=== PATIENT | male | born 1940 | race Caucasian/White ===

== ENCOUNTER 2023-05-04 12:30 | Inpatient (IN) | payer MEDICARE, OTHER ==
[2023-05-04 16:21] VITALS: BMI 31.8
[2023-05-04] MEDS ORDERED: Piperacillin/Tazobactam 3.375 GM VIAL IVPB SCH (20:00)
[2023-05-04] MEDS: Piperacillin/Tazobactam 3.375 GM in Sodium Chloride 0.9% 100 ML IVPB SCH (21:25)
[2023-05-04] MEDS: Donepezil HCl 10 MG TAB PO SCH (21:26)
[2023-05-04] MEDS: Atorvastatin Calcium 10 MG TAB PO SCH (21:26)
[2023-05-04] MEDS: Dorzolamide HCl 2% Ophth Soln 10 ml Bottle EA EYE SCH (21:27)
[2023-05-04] MEDS: Timolol 0.5% Ophth Soln 5 ml Bottle EA EYE SCH (22:23)
[2023-05-05] MEDS: Piperacillin/Tazobactam 3.375 GM in Sodium Chloride 0.9% 100 ML IVPB SCH ×3 (03:21→21:28)
[2023-05-05] MEDS: Levothyroxine Sodium 50 MCG TAB PO SCH (05:21)
[2023-05-05 05:26] LABS: #Eosinphils 0.4 thou/uL (0.0-0.7); #Lymphocytes 1.3 thou/uL (1.20-3.40); #Monocytes 0.7 thou/uL (0.11-0.59); #Neutrophils 6.5 thou/uL (1.40-6.50); %Basophils 0.5 % (0.0-1.0); %Eosinophils 4.6 % (0.0-10.0); %Lymphocytes 14.7 % (21.0-51.0); %Monocytes 8.3 % (0.0-10.0); %Neutrophils 71.9 % (42.0-75.0); Hematocrit 37.3 % (42.0-52.0); Hemoglobin 12.3 g/dL (14.0-18.0); Mean Corpuscular HGB CONC 32.9 g/dL (32.0-36.0); Mean Corpuscular Hemoglobin 29.4 pg (27.0-31.0); Mean Corpuscular Volume 89.4 fl (78.0-98.0); Mean Platelet Volume 8.1 fL (7.4-10.4); Platelet Count 144 10x3/uL (130-400); RBC Distribution Width 12.4 % (11.5-14.5); Red Blood Cell (RBC) Count 4.18 mill/uL (4.70-6.10)
[2023-05-05 05:40] LABS: Anion Gap 12 mmol/L (10-20); BUN (Urea Nitrogen) 12 mg/dL (8.4-25.7); Calc. Creatinine Clearance 81 mL/min (70-130); Calcium 8.4 mg/dL (7.8-10.44); Carbon Dioxide 21 mmol/L (23-31); Chloride 108 mmol/L (98-107); Estimated GFR 78; Glucose 90 mg/dL (83-110); Potassium 3.6 mmol/L (3.5-5.1); Sodium 137 mmol/L (136-145)
[2023-05-05] MEDS: Sertraline 100 MG TAB PO SCH (08:59)
[2023-05-05] MEDS: Dorzolamide HCl 2% Ophth Soln 10 ml Bottle EA EYE SCH ×2 (09:03→21:28)
[2023-05-05] MEDS: Cholecalciferol (Vitamin D3) 5,000 UNITS CAPSULE PO SCH (09:04)
[2023-05-05] MEDS: Timolol 0.5% Ophth Soln 5 ml Bottle EA EYE SCH ×2 (09:04→21:31)
[2023-05-05] MEDS: Tamsulosin HCl 0.4 MG CAP PO SCH (09:04)
[2023-05-05] MEDS: Aspirin 81 mg Enteric Coated Tablet PO SCH (09:05)
[2023-05-05] MEDS: Atorvastatin Calcium 10 MG TAB PO SCH (21:27)
[2023-05-05] MEDS: Donepezil HCl 10 MG TAB PO SCH (21:28)
[2023-05-06] MEDS: Piperacillin/Tazobactam 3.375 GM in Sodium Chloride 0.9% 100 ML IVPB SCH ×3 (04:31→20:12)
[2023-05-06] MEDS: Levothyroxine Sodium 50 MCG TAB PO SCH (05:30)
[2023-05-06] MEDS: Timolol 0.5% Ophth Soln 5 ml Bottle EA EYE SCH ×2 (09:40→20:11)
[2023-05-06] MEDS: Dorzolamide HCl 2% Ophth Soln 10 ml Bottle EA EYE SCH ×2 (09:41→20:13)
[2023-05-06] MEDS: Tamsulosin HCl 0.4 MG CAP PO SCH (09:42)
[2023-05-06] MEDS: Cholecalciferol (Vitamin D3) 5,000 UNITS CAPSULE PO SCH (09:42)
[2023-05-06] MEDS: Aspirin 81 mg Enteric Coated Tablet PO SCH (09:43)
[2023-05-06] MEDS: Sertraline 100 MG TAB PO SCH (09:43)
[2023-05-06] MEDS: Polyethylene Glycol 3350 17 GM Packet PO SCH (09:43)
[2023-05-06] MEDS: Atorvastatin Calcium 10 MG TAB PO SCH (20:12)
[2023-05-06] MEDS: Donepezil HCl 10 MG TAB PO SCH (20:12)
[2023-05-07] MEDS: Piperacillin/Tazobactam 3.375 GM in Sodium Chloride 0.9% 100 ML IVPB SCH ×3 (04:50→20:19)
[2023-05-07] MEDS: Levothyroxine Sodium 50 MCG TAB PO SCH (05:04)
[2023-05-07] MEDS: Dorzolamide HCl 2% Ophth Soln 10 ml Bottle EA EYE SCH ×2 (08:19→20:18)
[2023-05-07] MEDS: Tamsulosin HCl 0.4 MG CAP PO SCH (08:19)
[2023-05-07] MEDS: Polyethylene Glycol 3350 17 GM Packet PO SCH (08:19)
[2023-05-07] MEDS: Sertraline 100 MG TAB PO SCH (08:19)
[2023-05-07] MEDS: Aspirin 81 mg Enteric Coated Tablet PO SCH (08:19)
[2023-05-07] MEDS: Cholecalciferol (Vitamin D3) 5,000 UNITS CAPSULE PO SCH (08:19)
[2023-05-07] MEDS: Timolol 0.5% Ophth Soln 5 ml Bottle EA EYE SCH ×2 (08:20→20:20)
[2023-05-07] MEDS: Atorvastatin Calcium 10 MG TAB PO SCH (20:19)
[2023-05-07] MEDS: Donepezil HCl 10 MG TAB PO SCH (20:35)
[2023-05-08] MEDS: Piperacillin/Tazobactam 3.375 GM in Sodium Chloride 0.9% 100 ML IVPB SCH ×3 (04:04→20:33)
[2023-05-08] MEDS: Levothyroxine Sodium 50 MCG TAB PO SCH (05:07)
[2023-05-08] MEDS: Dorzolamide HCl 2% Ophth Soln 10 ml Bottle EA EYE SCH ×2 (08:25→20:34)
[2023-05-08] MEDS: Sertraline 100 MG TAB PO SCH (08:27)
[2023-05-08] MEDS: Tamsulosin HCl 0.4 MG CAP PO SCH (08:27)
[2023-05-08] MEDS: Polyethylene Glycol 3350 17 GM Packet PO SCH (08:27)
[2023-05-08] MEDS: Aspirin 81 mg Enteric Coated Tablet PO SCH (08:27)
[2023-05-08] MEDS: Losartan 25 MG TAB PO SCH (08:27)
[2023-05-08] MEDS: Cholecalciferol (Vitamin D3) 5,000 UNITS CAPSULE PO SCH (08:27)
[2023-05-08] MEDS: Timolol 0.5% Ophth Soln 5 ml Bottle EA EYE SCH ×2 (08:27→20:33)
[2023-05-08] MEDS: Donepezil HCl 10 MG TAB PO SCH (20:33)
[2023-05-08] MEDS: Atorvastatin Calcium 10 MG TAB PO SCH (20:33)
[2023-05-09] MEDS: Piperacillin/Tazobactam 3.375 GM in Sodium Chloride 0.9% 100 ML IVPB SCH ×3 (04:10→20:29)
[2023-05-09] MEDS: Levothyroxine Sodium 50 MCG TAB PO SCH (05:27)
[2023-05-09] MEDS: Timolol 0.5% Ophth Soln 5 ml Bottle EA EYE SCH ×2 (08:33→20:37)
[2023-05-09] MEDS: Aspirin 81 mg Enteric Coated Tablet PO SCH (08:34)
[2023-05-09] MEDS: Polyethylene Glycol 3350 17 GM Packet PO SCH (08:34)
[2023-05-09] MEDS: Sertraline 100 MG TAB PO SCH (08:34)
[2023-05-09] MEDS: Losartan 25 MG TAB PO SCH (08:34)
[2023-05-09] MEDS: Tamsulosin HCl 0.4 MG CAP PO SCH (08:34)
[2023-05-09] MEDS: Cholecalciferol (Vitamin D3) 5,000 UNITS CAPSULE PO SCH (08:34)
[2023-05-09] MEDS: Dorzolamide HCl 2% Ophth Soln 10 ml Bottle EA EYE SCH ×2 (08:38→20:27)
[2023-05-09] MEDS: Donepezil HCl 10 MG TAB PO SCH (20:28)
[2023-05-09] MEDS: Atorvastatin Calcium 10 MG TAB PO SCH (20:28)
[2023-05-10] MEDS: Piperacillin/Tazobactam 3.375 GM in Sodium Chloride 0.9% 100 ML IVPB SCH ×3 (04:00→20:18)
[2023-05-10] MEDS: Levothyroxine Sodium 50 MCG TAB PO SCH (04:00)
[2023-05-10] MEDS: Cholecalciferol (Vitamin D3) 5,000 UNITS CAPSULE PO SCH (08:29)
[2023-05-10] MEDS: Polyethylene Glycol 3350 17 GM Packet PO SCH (08:29)
[2023-05-10] MEDS: Sertraline 100 MG TAB PO SCH (08:30)
[2023-05-10] MEDS: Aspirin 81 mg Enteric Coated Tablet PO SCH (08:30)
[2023-05-10] MEDS: Timolol 0.5% Ophth Soln 5 ml Bottle EA EYE SCH ×2 (08:30→20:17)
[2023-05-10] MEDS: Dorzolamide HCl 2% Ophth Soln 10 ml Bottle EA EYE SCH ×2 (08:30→20:24)
[2023-05-10] MEDS: Tamsulosin HCl 0.4 MG CAP PO SCH (08:30)
[2023-05-10] MEDS: Losartan 25 MG TAB PO SCH (08:30)
[2023-05-10] MEDS: Atorvastatin Calcium 10 MG TAB PO SCH (20:21)
[2023-05-10] MEDS: Donepezil HCl 10 MG TAB PO SCH (20:21)
[2023-05-11] MEDS: Piperacillin/Tazobactam 3.375 GM in Sodium Chloride 0.9% 100 ML IVPB SCH ×3 (04:03→20:28)
[2023-05-11] MEDS: Levothyroxine Sodium 50 MCG TAB PO SCH (04:03)
[2023-05-11] MEDS: Tamsulosin HCl 0.4 MG CAP PO SCH (09:18)
[2023-05-11] MEDS: Losartan 25 MG TAB PO SCH (09:18)
[2023-05-11] MEDS: Timolol 0.5% Ophth Soln 5 ml Bottle EA EYE SCH ×2 (09:19→20:29)
[2023-05-11] MEDS: Sertraline 100 MG TAB PO SCH (09:19)
[2023-05-11] MEDS: Polyethylene Glycol 3350 17 GM Packet PO SCH (09:19)
[2023-05-11] MEDS: Aspirin 81 mg Enteric Coated Tablet PO SCH (09:19)
[2023-05-11] MEDS: Cholecalciferol (Vitamin D3) 5,000 UNITS CAPSULE PO SCH (09:19)
[2023-05-11] MEDS: Dorzolamide HCl 2% Ophth Soln 10 ml Bottle EA EYE SCH ×2 (09:20→20:29)
[2023-05-11] MEDS: Donepezil HCl 10 MG TAB PO SCH (20:28)
[2023-05-11] MEDS: Atorvastatin Calcium 10 MG TAB PO SCH (20:30)
[2023-05-12] MEDS: Piperacillin/Tazobactam 3.375 GM in Sodium Chloride 0.9% 100 ML IVPB SCH ×3 (04:04→19:26)
[2023-05-12] MEDS: Levothyroxine Sodium 50 MCG TAB PO SCH (06:10)
[2023-05-12] MEDS: Losartan Potassium 50 MG TAB PO SCH (08:59)
[2023-05-12] MEDS: Tamsulosin HCl 0.4 MG CAP PO SCH (09:00)
[2023-05-12] MEDS: Sertraline 100 MG TAB PO SCH (09:00)
[2023-05-12] MEDS: Aspirin 81 mg Enteric Coated Tablet PO SCH (09:00)
[2023-05-12] MEDS: Cholecalciferol (Vitamin D3) 5,000 UNITS CAPSULE PO SCH (09:00)
[2023-05-12] MEDS: Timolol 0.5% Ophth Soln 5 ml Bottle EA EYE SCH ×2 (09:01→21:39)
[2023-05-12] MEDS: Dorzolamide HCl 2% Ophth Soln 10 ml Bottle EA EYE SCH ×2 (09:06→21:40)
[2023-05-12] MEDS: Polyethylene Glycol 3350 17 GM Packet PO SCH (09:10)
[2023-05-12] MEDS ORDERED: Ketamine 50 MG/ML (10ML VIAL) ONE (18:07)
[2023-05-12] MEDS: Atorvastatin Calcium 10 MG TAB PO SCH (21:39)
[2023-05-12] MEDS: Donepezil HCl 10 MG TAB PO SCH (21:39)
[2023-05-13] MEDS: Levothyroxine Sodium 50 MCG TAB PO SCH (05:07)
[2023-05-13] MEDS: Cholecalciferol (Vitamin D3) 5,000 UNITS CAPSULE PO SCH (08:21)
[2023-05-13] MEDS: Losartan Potassium 50 MG TAB PO SCH (08:21)
[2023-05-13] MEDS: Dorzolamide HCl 2% Ophth Soln 10 ml Bottle EA EYE SCH ×2 (08:22→21:09)
[2023-05-13] MEDS: Tamsulosin HCl 0.4 MG CAP PO SCH (08:22)
[2023-05-13] MEDS: Aspirin 81 mg Enteric Coated Tablet PO SCH (08:22)
[2023-05-13] MEDS: Sertraline 100 MG TAB PO SCH (08:22)
[2023-05-13] MEDS: Timolol 0.5% Ophth Soln 5 ml Bottle EA EYE SCH ×2 (08:22→21:09)
[2023-05-13] MEDS: Polyethylene Glycol 3350 17 GM Packet PO SCH (10:12)
[2023-05-13] MEDS: Atorvastatin Calcium 10 MG TAB PO SCH (21:09)
[2023-05-13] MEDS: Donepezil HCl 10 MG TAB PO SCH (21:09)
[2023-05-14] MEDS: Levothyroxine Sodium 50 MCG TAB PO SCH (05:17)
[2023-05-14] MEDS: Sertraline 100 MG TAB PO SCH (08:38)
[2023-05-14] MEDS: Polyethylene Glycol 3350 17 GM Packet PO SCH (08:38)
[2023-05-14] MEDS: Aspirin 81 mg Enteric Coated Tablet PO SCH (08:38)
[2023-05-14] MEDS: Losartan Potassium 50 MG TAB PO SCH (08:38)
[2023-05-14] MEDS: Cholecalciferol (Vitamin D3) 5,000 UNITS CAPSULE PO SCH (08:38)
[2023-05-14] MEDS: Tamsulosin HCl 0.4 MG CAP PO SCH (08:38)
[2023-05-14] MEDS: Dorzolamide HCl 2% Ophth Soln 10 ml Bottle EA EYE SCH ×2 (08:39→20:42)
[2023-05-14] MEDS: Timolol 0.5% Ophth Soln 5 ml Bottle EA EYE SCH ×2 (08:39→20:31)
[2023-05-14] MEDS: Atorvastatin Calcium 10 MG TAB PO SCH (20:35)
[2023-05-14] MEDS: Donepezil HCl 10 MG TAB PO SCH (20:35)
[2023-05-15] MEDS: Levothyroxine Sodium 50 MCG TAB PO SCH (05:31)
[2023-05-15] MEDS: Cholecalciferol (Vitamin D3) 5,000 UNITS CAPSULE PO SCH (09:07)
[2023-05-15] MEDS: Aspirin 81 mg Enteric Coated Tablet PO SCH (09:07)
[2023-05-15] MEDS: Losartan Potassium 50 MG TAB PO SCH (09:07)
[2023-05-15] MEDS: Sertraline 100 MG TAB PO SCH (09:07)
[2023-05-15] MEDS: Tamsulosin HCl 0.4 MG CAP PO SCH (09:08)
[2023-05-15] MEDS: Polyethylene Glycol 3350 17 GM Packet PO SCH (09:16)
[2023-05-15] MEDS: Dorzolamide HCl 2% Ophth Soln 10 ml Bottle EA EYE SCH ×2 (09:16→20:24)
[2023-05-15] MEDS: Timolol 0.5% Ophth Soln 5 ml Bottle EA EYE SCH ×2 (09:17→20:17)
[2023-05-15] MEDS: Atorvastatin Calcium 10 MG TAB PO SCH (20:18)
[2023-05-15] MEDS: Donepezil HCl 10 MG TAB PO SCH (20:18)
[2023-05-16] MEDS: Levothyroxine Sodium 50 MCG TAB PO SCH (05:57)
[2023-05-16] MEDS: Aspirin 81 mg Enteric Coated Tablet PO SCH (09:00)
[2023-05-16] MEDS: Tamsulosin HCl 0.4 MG CAP PO SCH (09:00)
[2023-05-16] MEDS: Sertraline 100 MG TAB PO SCH (09:01)
[2023-05-16] MEDS: Losartan Potassium 50 MG TAB PO SCH (09:01)
[2023-05-16] MEDS: Cholecalciferol (Vitamin D3) 5,000 UNITS CAPSULE PO SCH (09:01)
[2023-05-16] MEDS: Dorzolamide HCl 2% Ophth Soln 10 ml Bottle EA EYE SCH ×2 (09:04→21:01)
[2023-05-16] MEDS: Polyethylene Glycol 3350 17 GM Packet PO SCH (09:05)
[2023-05-16] MEDS: Timolol 0.5% Ophth Soln 5 ml Bottle EA EYE SCH ×2 (09:05→20:54)
[2023-05-16] MEDS: Donepezil HCl 10 MG TAB PO SCH (20:56)
[2023-05-16] MEDS: Atorvastatin Calcium 10 MG TAB PO SCH (20:56)
[2023-05-17] MEDS: Levothyroxine Sodium 50 MCG TAB PO SCH (06:13)
[2023-05-17] MEDS: Polyethylene Glycol 3350 17 GM Packet PO SCH (08:53)
[2023-05-17] MEDS: Losartan Potassium 50 MG TAB PO SCH (08:54)
[2023-05-17] MEDS: Aspirin 81 mg Enteric Coated Tablet PO SCH (08:54)
[2023-05-17] MEDS: Tamsulosin HCl 0.4 MG CAP PO SCH (08:54)
[2023-05-17] MEDS: Cholecalciferol (Vitamin D3) 5,000 UNITS CAPSULE PO SCH (08:54)
[2023-05-17] MEDS: Sertraline 100 MG TAB PO SCH (08:54)
[2023-05-17] MEDS: Timolol 0.5% Ophth Soln 5 ml Bottle EA EYE SCH ×2 (08:58→20:15)
[2023-05-17] MEDS: Dorzolamide HCl 2% Ophth Soln 10 ml Bottle EA EYE SCH ×2 (08:58→20:15)
[2023-05-17] MEDS: Atorvastatin Calcium 10 MG TAB PO SCH (20:15)
[2023-05-17] MEDS: Donepezil HCl 10 MG TAB PO SCH (20:15)
[2023-05-18] MEDS: Levothyroxine Sodium 50 MCG TAB PO SCH (05:56)
[2023-05-18] MEDS: Timolol 0.5% Ophth Soln 5 ml Bottle EA EYE SCH ×2 (08:29→20:21)
[2023-05-18] MEDS: Losartan Potassium 50 MG TAB PO SCH (08:30)
[2023-05-18] MEDS: Dorzolamide HCl 2% Ophth Soln 10 ml Bottle EA EYE SCH ×2 (08:30→20:22)
[2023-05-18] MEDS: Sertraline 100 MG TAB PO SCH (08:37)
[2023-05-18] MEDS: Polyethylene Glycol 3350 17 GM Packet PO SCH (08:37)
[2023-05-18] MEDS: Aspirin 81 mg Enteric Coated Tablet PO SCH (08:37)
[2023-05-18] MEDS: Cholecalciferol (Vitamin D3) 5,000 UNITS CAPSULE PO SCH (08:37)
[2023-05-18] MEDS: Tamsulosin HCl 0.4 MG CAP PO SCH (08:37)
[2023-05-18] MEDS: Donepezil HCl 10 MG TAB PO SCH (20:21)
[2023-05-18] MEDS: Atorvastatin Calcium 10 MG TAB PO SCH (20:21)
[2023-05-19] MEDS: Levothyroxine Sodium 50 MCG TAB PO SCH (05:02)
[2023-05-19] MEDS: Dorzolamide HCl 2% Ophth Soln 10 ml Bottle EA EYE SCH ×2 (08:35→21:00)
[2023-05-19] MEDS: Timolol 0.5% Ophth Soln 5 ml Bottle EA EYE SCH ×2 (08:35→21:00)
[2023-05-19] MEDS: Losartan Potassium 50 MG TAB PO SCH (08:37)
[2023-05-19] MEDS: Cholecalciferol (Vitamin D3) 5,000 UNITS CAPSULE PO SCH (08:37)
[2023-05-19] MEDS: Tamsulosin HCl 0.4 MG CAP PO SCH (08:38)
[2023-05-19] MEDS: Aspirin 81 mg Enteric Coated Tablet PO SCH (08:38)
[2023-05-19] MEDS: Sertraline 100 MG TAB PO SCH (08:47)
[2023-05-19] MEDS: Polyethylene Glycol 3350 17 GM Packet PO SCH (10:09)
[2023-05-19] MEDS: Donepezil HCl 10 MG TAB PO SCH (20:59)
[2023-05-19] MEDS: Atorvastatin Calcium 10 MG TAB PO SCH (20:59)
[2023-05-20] MEDS: Levothyroxine Sodium 50 MCG TAB PO SCH (05:40)
[2023-05-20] MEDS: Dorzolamide HCl 2% Ophth Soln 10 ml Bottle EA EYE SCH ×2 (09:15→20:44)
[2023-05-20] MEDS: Timolol 0.5% Ophth Soln 5 ml Bottle EA EYE SCH ×2 (09:15→20:50)
[2023-05-20] MEDS: Losartan Potassium 50 MG TAB PO SCH (09:16)
[2023-05-20] MEDS: Cholecalciferol (Vitamin D3) 5,000 UNITS CAPSULE PO SCH (09:16)
[2023-05-20] MEDS: Tamsulosin HCl 0.4 MG CAP PO SCH (09:16)
[2023-05-20] MEDS: Aspirin 81 mg Enteric Coated Tablet PO SCH (09:16)
[2023-05-20] MEDS: Sertraline 100 MG TAB PO SCH (09:16)
[2023-05-20] MEDS: Polyethylene Glycol 3350 17 GM Packet PO SCH (09:17)
[2023-05-20] MEDS: Atorvastatin Calcium 10 MG TAB PO SCH (20:44)
[2023-05-20] MEDS: Donepezil HCl 10 MG TAB PO SCH (20:44)
[2023-05-21] MEDS: Levothyroxine Sodium 50 MCG TAB PO SCH (05:06)
[2023-05-21] MEDS: Tamsulosin HCl 0.4 MG CAP PO SCH (09:05)
[2023-05-21] MEDS: Polyethylene Glycol 3350 17 GM Packet PO SCH (09:05)
[2023-05-21] MEDS: Aspirin 81 mg Enteric Coated Tablet PO SCH (09:05)
[2023-05-21] MEDS: Sertraline 100 MG TAB PO SCH (09:05)
[2023-05-21] MEDS: Losartan Potassium 50 MG TAB PO SCH (09:05)
[2023-05-21] MEDS: Dorzolamide HCl 2% Ophth Soln 10 ml Bottle EA EYE SCH ×2 (09:06→20:33)
[2023-05-21] MEDS: Cholecalciferol (Vitamin D3) 5,000 UNITS CAPSULE PO SCH (09:06)
[2023-05-21] MEDS: Timolol 0.5% Ophth Soln 5 ml Bottle EA EYE SCH ×2 (09:07→20:20)
[2023-05-21] MEDS: Atorvastatin Calcium 10 MG TAB PO SCH (20:20)
[2023-05-21] MEDS: Donepezil HCl 10 MG TAB PO SCH (20:20)
[2023-05-22] MEDS: Levothyroxine Sodium 50 MCG TAB PO SCH (05:14)
[2023-05-22] MEDS: Sertraline 100 MG TAB PO SCH (09:54)
[2023-05-22] MEDS: Losartan Potassium 50 MG TAB PO SCH (09:54)
[2023-05-22] MEDS: Cholecalciferol (Vitamin D3) 5,000 UNITS CAPSULE PO SCH (09:54)
[2023-05-22] MEDS: Aspirin 81 mg Enteric Coated Tablet PO SCH (09:54)
[2023-05-22] MEDS: Tamsulosin HCl 0.4 MG CAP PO SCH (09:54)
[2023-05-22] MEDS: Dorzolamide HCl 2% Ophth Soln 10 ml Bottle EA EYE SCH ×2 (09:55→20:20)
[2023-05-22] MEDS: Timolol 0.5% Ophth Soln 5 ml Bottle EA EYE SCH ×2 (09:55→20:31)
[2023-05-22] MEDS: Polyethylene Glycol 3350 17 GM Packet PO SCH (09:56)
[2023-05-22] MEDS: Atorvastatin Calcium 10 MG TAB PO SCH (20:18)
[2023-05-22] MEDS: Donepezil HCl 10 MG TAB PO SCH (20:18)
[2023-05-23] MEDS: Levothyroxine Sodium 50 MCG TAB PO SCH (05:31)
[2023-05-23] MEDS: Dorzolamide HCl 2% Ophth Soln 10 ml Bottle EA EYE SCH ×2 (09:49→20:25)
[2023-05-23] MEDS: Timolol 0.5% Ophth Soln 5 ml Bottle EA EYE SCH ×2 (09:49→20:25)
[2023-05-23] MEDS: Cholecalciferol (Vitamin D3) 5,000 UNITS CAPSULE PO SCH (09:50)
[2023-05-23] MEDS: Losartan Potassium 50 MG TAB PO SCH (09:50)
[2023-05-23] MEDS: Polyethylene Glycol 3350 17 GM Packet PO SCH (09:50)
[2023-05-23] MEDS: Sertraline 100 MG TAB PO SCH (09:50)
[2023-05-23] MEDS: Tamsulosin HCl 0.4 MG CAP PO SCH (09:50)
[2023-05-23] MEDS: Aspirin 81 mg Enteric Coated Tablet PO SCH (09:50)
[2023-05-23] MEDS: Atorvastatin Calcium 10 MG TAB PO SCH (20:24)
[2023-05-23] MEDS: Donepezil HCl 10 MG TAB PO SCH (20:24)
[2023-05-24] MEDS: Levothyroxine Sodium 50 MCG TAB PO SCH (05:42)
[2023-05-24] MEDS: Aspirin 81 mg Enteric Coated Tablet PO SCH (08:56)
[2023-05-24] MEDS: Tamsulosin HCl 0.4 MG CAP PO SCH (08:56)
[2023-05-24] MEDS: Cholecalciferol (Vitamin D3) 5,000 UNITS CAPSULE PO SCH (08:56)
[2023-05-24] MEDS: Sertraline 100 MG TAB PO SCH (08:56)
[2023-05-24] MEDS: Losartan Potassium 50 MG TAB PO SCH (08:56)
[2023-05-24] MEDS: Polyethylene Glycol 3350 17 GM Packet PO SCH (08:57)
[2023-05-24] MEDS: Timolol 0.5% Ophth Soln 5 ml Bottle EA EYE SCH ×2 (08:58→21:12)
[2023-05-24] MEDS: Dorzolamide HCl 2% Ophth Soln 10 ml Bottle EA EYE SCH ×2 (08:58→21:12)
[2023-05-24] MEDS: Donepezil HCl 10 MG TAB PO SCH (21:12)
[2023-05-24] MEDS: Atorvastatin Calcium 10 MG TAB PO SCH (21:12)
[2023-05-25] MEDS: Levothyroxine Sodium 50 MCG TAB PO SCH (05:14)
[2023-05-25] MEDS: Losartan Potassium 50 MG TAB PO SCH (08:37)
[2023-05-25] MEDS: Tamsulosin HCl 0.4 MG CAP PO SCH (08:37)
[2023-05-25] MEDS: Dorzolamide HCl 2% Ophth Soln 10 ml Bottle EA EYE SCH ×2 (08:37→20:52)
[2023-05-25] MEDS: Cholecalciferol (Vitamin D3) 5,000 UNITS CAPSULE PO SCH (08:38)
[2023-05-25] MEDS: Sertraline 100 MG TAB PO SCH (08:38)
[2023-05-25] MEDS: Aspirin 81 mg Enteric Coated Tablet PO SCH (08:38)
[2023-05-25] MEDS: Polyethylene Glycol 3350 17 GM Packet PO SCH (08:38)
[2023-05-25] MEDS: Timolol 0.5% Ophth Soln 5 ml Bottle EA EYE SCH ×2 (08:39→20:57)
[2023-05-25] MEDS: Atorvastatin Calcium 10 MG TAB PO SCH (20:52)
[2023-05-25] MEDS: Donepezil HCl 10 MG TAB PO SCH (20:53)
[2023-05-26] MEDS: Levothyroxine Sodium 50 MCG TAB PO SCH (06:22)
[2023-05-26] MEDS: Timolol 0.5% Ophth Soln 5 ml Bottle EA EYE SCH ×2 (09:28→21:12)
[2023-05-26] MEDS: Cholecalciferol (Vitamin D3) 5,000 UNITS CAPSULE PO SCH (09:31)
[2023-05-26] MEDS: Losartan Potassium 50 MG TAB PO SCH (09:31)
[2023-05-26] MEDS: Tamsulosin HCl 0.4 MG CAP PO SCH (09:31)
[2023-05-26] MEDS: Sertraline 100 MG TAB PO SCH (09:33)
[2023-05-26] MEDS: Aspirin 81 mg Enteric Coated Tablet PO SCH (09:33)
[2023-05-26] MEDS: Dorzolamide HCl 2% Ophth Soln 10 ml Bottle EA EYE SCH ×2 (09:33→21:08)
[2023-05-26] MEDS: Polyethylene Glycol 3350 17 GM Packet PO SCH (09:36)
[2023-05-26] MEDS: Donepezil HCl 10 MG TAB PO SCH (21:08)
[2023-05-26] MEDS: Atorvastatin Calcium 10 MG TAB PO SCH (21:08)
[2023-05-27] MEDS: Levothyroxine Sodium 50 MCG TAB PO SCH (06:14)
[2023-05-27] MEDS: Dorzolamide HCl 2% Ophth Soln 10 ml Bottle EA EYE SCH ×2 (08:51→20:25)
[2023-05-27] MEDS: Timolol 0.5% Ophth Soln 5 ml Bottle EA EYE SCH ×2 (08:51→20:20)
[2023-05-27] MEDS: Losartan Potassium 50 MG TAB PO SCH (08:56)
[2023-05-27] MEDS: Tamsulosin HCl 0.4 MG CAP PO SCH (08:56)
[2023-05-27] MEDS: Sertraline 100 MG TAB PO SCH (08:56)
[2023-05-27] MEDS: Aspirin 81 mg Enteric Coated Tablet PO SCH (08:56)
[2023-05-27] MEDS: Cholecalciferol (Vitamin D3) 5,000 UNITS CAPSULE PO SCH (08:56)
[2023-05-27] MEDS: Polyethylene Glycol 3350 17 GM Packet PO SCH (08:57)
[2023-05-27] MEDS: Atorvastatin Calcium 10 MG TAB PO SCH (20:22)
[2023-05-27] MEDS: Donepezil HCl 10 MG TAB PO SCH (20:22)
[2023-05-28] MEDS: Levothyroxine Sodium 50 MCG TAB PO SCH (05:15)
[2023-05-28] MEDS: Timolol 0.5% Ophth Soln 5 ml Bottle EA EYE SCH ×2 (08:44→21:32)
[2023-05-28] MEDS: Dorzolamide HCl 2% Ophth Soln 10 ml Bottle EA EYE SCH ×2 (08:48→21:36)
[2023-05-28] MEDS: Sertraline 100 MG TAB PO SCH (08:51)
[2023-05-28] MEDS: Cholecalciferol (Vitamin D3) 5,000 UNITS CAPSULE PO SCH (08:51)
[2023-05-28] MEDS: Losartan Potassium 50 MG TAB PO SCH (08:51)
[2023-05-28] MEDS: Tamsulosin HCl 0.4 MG CAP PO SCH (08:52)
[2023-05-28] MEDS: Polyethylene Glycol 3350 17 GM Packet PO SCH (08:52)
[2023-05-28] MEDS: Aspirin 81 mg Enteric Coated Tablet PO SCH (08:52)
[2023-05-28] MEDS: Donepezil HCl 10 MG TAB PO SCH (21:33)
[2023-05-28] MEDS: Atorvastatin Calcium 10 MG TAB PO SCH (21:33)
[2023-05-29] MEDS: Levothyroxine Sodium 50 MCG TAB PO SCH (06:00)
[2023-05-29] MEDS: Aspirin 81 mg Enteric Coated Tablet PO SCH (09:36)
[2023-05-29] MEDS: Losartan Potassium 50 MG TAB PO SCH (09:36)
[2023-05-29] MEDS: Cholecalciferol (Vitamin D3) 5,000 UNITS CAPSULE PO SCH (09:36)
[2023-05-29] MEDS: Polyethylene Glycol 3350 17 GM Packet PO SCH (09:37)
[2023-05-29] MEDS: Dorzolamide HCl 2% Ophth Soln 10 ml Bottle EA EYE SCH ×2 (09:37→21:19)
[2023-05-29] MEDS: Timolol 0.5% Ophth Soln 5 ml Bottle EA EYE SCH ×2 (09:37→21:24)
[2023-05-29] MEDS: Sertraline 100 MG TAB PO SCH (09:40)
[2023-05-29] MEDS: Tamsulosin HCl 0.4 MG CAP PO SCH (09:41)
[2023-05-29] MEDS: Atorvastatin Calcium 10 MG TAB PO SCH (21:21)
[2023-05-29] MEDS: Donepezil HCl 10 MG TAB PO SCH (21:21)
[2023-05-30] MEDS: Levothyroxine Sodium 50 MCG TAB PO SCH (04:55)
[2023-05-30] MEDS: Aspirin 81 mg Enteric Coated Tablet PO SCH (09:34)
[2023-05-30] MEDS: Dorzolamide HCl 2% Ophth Soln 10 ml Bottle EA EYE SCH ×2 (09:34→21:04)
[2023-05-30] MEDS: Sertraline 100 MG TAB PO SCH (09:34)
[2023-05-30] MEDS: Timolol 0.5% Ophth Soln 5 ml Bottle EA EYE SCH ×2 (09:34→21:08)
[2023-05-30] MEDS: Losartan Potassium 50 MG TAB PO SCH (09:34)
[2023-05-30] MEDS: Tamsulosin HCl 0.4 MG CAP PO SCH (09:34)
[2023-05-30] MEDS: Cholecalciferol (Vitamin D3) 5,000 UNITS CAPSULE PO SCH (09:34)
[2023-05-30] MEDS: Polyethylene Glycol 3350 17 GM Packet PO SCH (09:36)
[2023-05-30] MEDS: Atorvastatin Calcium 10 MG TAB PO SCH (21:05)
[2023-05-30] MEDS: Donepezil HCl 10 MG TAB PO SCH (21:06)
[2023-05-31] MEDS: Levothyroxine Sodium 50 MCG TAB PO SCH (05:37)
[2023-05-31] MEDS: Cholecalciferol (Vitamin D3) 5,000 UNITS CAPSULE PO SCH (09:05)
[2023-05-31] MEDS: Losartan Potassium 50 MG TAB PO SCH (09:05)
[2023-05-31] MEDS: Dorzolamide HCl 2% Ophth Soln 10 ml Bottle EA EYE SCH ×2 (09:05→20:12)
[2023-05-31] MEDS: Sertraline 100 MG TAB PO SCH (09:06)
[2023-05-31] MEDS: Tamsulosin HCl 0.4 MG CAP PO SCH (09:06)
[2023-05-31] MEDS: Timolol 0.5% Ophth Soln 5 ml Bottle EA EYE SCH ×2 (09:06→20:18)
[2023-05-31] MEDS: Aspirin 81 mg Enteric Coated Tablet PO SCH (09:06)
[2023-05-31] MEDS: Polyethylene Glycol 3350 17 GM Packet PO SCH (17:58)
[2023-05-31] MEDS: Donepezil HCl 10 MG TAB PO SCH (20:13)
[2023-05-31] MEDS: Atorvastatin Calcium 10 MG TAB PO SCH (20:13)
[2023-06-01] MEDS: Levothyroxine Sodium 50 MCG TAB PO SCH (05:03)
[2023-06-01] MEDS: Polyethylene Glycol 3350 17 GM Packet PO SCH (09:01)
[2023-06-01] MEDS: Aspirin 81 mg Enteric Coated Tablet PO SCH (09:01)
[2023-06-01] MEDS: Cholecalciferol (Vitamin D3) 5,000 UNITS CAPSULE PO SCH (09:01)
[2023-06-01] MEDS: Timolol 0.5% Ophth Soln 5 ml Bottle EA EYE SCH ×2 (09:01→20:45)
[2023-06-01] MEDS: Tamsulosin HCl 0.4 MG CAP PO SCH (09:01)
[2023-06-01] MEDS: Losartan Potassium 50 MG TAB PO SCH (09:01)
[2023-06-01] MEDS: Sertraline 100 MG TAB PO SCH (09:01)
[2023-06-01] MEDS: Dorzolamide HCl 2% Ophth Soln 10 ml Bottle EA EYE SCH ×2 (09:02→20:40)
[2023-06-01] MEDS: Donepezil HCl 10 MG TAB PO SCH (20:40)
[2023-06-01] MEDS: Atorvastatin Calcium 10 MG TAB PO SCH (20:40)
[2023-06-02] MEDS: Levothyroxine Sodium 50 MCG TAB PO SCH (05:02)
[2023-06-02] MEDS: Polyethylene Glycol 3350 17 GM Packet PO SCH (08:23)
[2023-06-02] MEDS: Aspirin 81 mg Enteric Coated Tablet PO SCH (08:23)
[2023-06-02] MEDS: Losartan Potassium 50 MG TAB PO SCH (08:23)
[2023-06-02] MEDS: Timolol 0.5% Ophth Soln 5 ml Bottle EA EYE SCH ×2 (08:23→21:36)
[2023-06-02] MEDS: Sertraline 100 MG TAB PO SCH (08:23)
[2023-06-02] MEDS: Tamsulosin HCl 0.4 MG CAP PO SCH (08:23)
[2023-06-02] MEDS: Cholecalciferol (Vitamin D3) 5,000 UNITS CAPSULE PO SCH (08:24)
[2023-06-02] MEDS: Dorzolamide HCl 2% Ophth Soln 10 ml Bottle EA EYE SCH ×2 (08:24→21:12)
[2023-06-02] MEDS: Donepezil HCl 10 MG TAB PO SCH (21:12)
[2023-06-02] MEDS: Atorvastatin Calcium 10 MG TAB PO SCH (21:12)
[2023-06-03] MEDS: Levothyroxine Sodium 50 MCG TAB PO SCH (05:20)
[2023-06-03] MEDS: Aspirin 81 mg Enteric Coated Tablet PO SCH (10:08)
[2023-06-03] MEDS: Tamsulosin HCl 0.4 MG CAP PO SCH (10:08)
[2023-06-03] MEDS: Dorzolamide HCl 2% Ophth Soln 10 ml Bottle EA EYE SCH ×2 (10:08→20:19)
[2023-06-03] MEDS: Sertraline 100 MG TAB PO SCH (10:09)
[2023-06-03] MEDS: Losartan Potassium 50 MG TAB PO SCH (10:09)
[2023-06-03] MEDS: Timolol 0.5% Ophth Soln 5 ml Bottle EA EYE SCH ×2 (10:10→20:18)
[2023-06-03] MEDS: Cholecalciferol (Vitamin D3) 5,000 UNITS CAPSULE PO SCH (10:10)
[2023-06-03] MEDS: Polyethylene Glycol 3350 17 GM Packet PO SCH (10:11)
[2023-06-03] MEDS: Donepezil HCl 10 MG TAB PO SCH (20:20)
[2023-06-03] MEDS: Atorvastatin Calcium 10 MG TAB PO SCH (20:20)
[2023-06-04] MEDS: Levothyroxine Sodium 50 MCG TAB PO SCH (05:28)
[2023-06-04] MEDS: Dorzolamide HCl 2% Ophth Soln 10 ml Bottle EA EYE SCH ×2 (09:04→20:21)
[2023-06-04] MEDS: Losartan Potassium 50 MG TAB PO SCH (09:04)
[2023-06-04] MEDS: Tamsulosin HCl 0.4 MG CAP PO SCH (09:05)
[2023-06-04] MEDS: Timolol 0.5% Ophth Soln 5 ml Bottle EA EYE SCH ×2 (09:05→20:27)
[2023-06-04] MEDS: Sertraline 100 MG TAB PO SCH (09:05)
[2023-06-04] MEDS: Aspirin 81 mg Enteric Coated Tablet PO SCH (09:05)
[2023-06-04] MEDS: Cholecalciferol (Vitamin D3) 5,000 UNITS CAPSULE PO SCH (09:05)
[2023-06-04] MEDS: Polyethylene Glycol 3350 17 GM Packet PO SCH (18:29)
[2023-06-04] MEDS: Donepezil HCl 10 MG TAB PO SCH (20:22)
[2023-06-04] MEDS: Atorvastatin Calcium 10 MG TAB PO SCH (20:22)
[2023-06-05] MEDS: Levothyroxine Sodium 50 MCG TAB PO SCH (05:14)
[2023-06-05] MEDS: Losartan Potassium 50 MG TAB PO SCH (08:39)
[2023-06-05] MEDS: Tamsulosin HCl 0.4 MG CAP PO SCH (08:39)
[2023-06-05] MEDS: Cholecalciferol (Vitamin D3) 5,000 UNITS CAPSULE PO SCH (08:39)
[2023-06-05] MEDS: Sertraline 100 MG TAB PO SCH (08:39)
[2023-06-05] MEDS: Aspirin 81 mg Enteric Coated Tablet PO SCH (08:39)
[2023-06-05] MEDS: Timolol 0.5% Ophth Soln 5 ml Bottle EA EYE SCH ×2 (08:40→20:20)
[2023-06-05] MEDS: Dorzolamide HCl 2% Ophth Soln 10 ml Bottle EA EYE SCH ×2 (08:40→20:14)
[2023-06-05] MEDS: Polyethylene Glycol 3350 17 GM Packet PO SCH (08:41)
[2023-06-05] MEDS: Donepezil HCl 10 MG TAB PO SCH (20:13)
[2023-06-05] MEDS: Atorvastatin Calcium 10 MG TAB PO SCH (20:13)
[2023-06-06] MEDS: Levothyroxine Sodium 50 MCG TAB PO SCH (05:00)
[2023-06-06] MEDS: Sertraline 100 MG TAB PO SCH (10:01)
[2023-06-06] MEDS: Cholecalciferol (Vitamin D3) 5,000 UNITS CAPSULE PO SCH (10:01)
[2023-06-06] MEDS: Aspirin 81 mg Enteric Coated Tablet PO SCH (10:01)
[2023-06-06] MEDS: Losartan Potassium 50 MG TAB PO SCH (10:01)
[2023-06-06] MEDS: Polyethylene Glycol 3350 17 GM Packet PO SCH (10:02)
[2023-06-06] MEDS: Dorzolamide HCl 2% Ophth Soln 10 ml Bottle EA EYE SCH ×2 (10:02→21:14)
[2023-06-06] MEDS: Timolol 0.5% Ophth Soln 5 ml Bottle EA EYE SCH ×2 (10:02→20:50)
[2023-06-06] MEDS: Tamsulosin HCl 0.4 MG CAP PO SCH (10:02)
[2023-06-06] MEDS: Donepezil HCl 10 MG TAB PO SCH (20:50)
[2023-06-06] MEDS: Atorvastatin Calcium 10 MG TAB PO SCH (20:50)
[2023-06-07] MEDS: Levothyroxine Sodium 50 MCG TAB PO SCH (05:17)
[2023-06-07] MEDS: Tamsulosin HCl 0.4 MG CAP PO SCH (09:00)
[2023-06-07] MEDS: Aspirin 81 mg Enteric Coated Tablet PO SCH (09:00)
[2023-06-07] MEDS: Polyethylene Glycol 3350 17 GM Packet PO SCH (09:00)
[2023-06-07] MEDS: Sertraline 100 MG TAB PO SCH (09:01)
[2023-06-07] MEDS: Cholecalciferol (Vitamin D3) 5,000 UNITS CAPSULE PO SCH (09:01)
[2023-06-07] MEDS: Dorzolamide HCl 2% Ophth Soln 10 ml Bottle EA EYE SCH (09:01)
[2023-06-07] MEDS: Losartan Potassium 50 MG TAB PO SCH (09:01)
[2023-06-07 16:12] VITALS: BP 119/81; TEMP 98.4
== END 2023-06-07 16:30 | DRG 872 ==
LOC: BURMED 16:10
PROVIDERS: ADMIT Family Medicine; ATTEND Nurse Practitioner
DX: A41.9 Sepsis, unspecified organism (principal); N39.0 Urinary tract infection, site not specified; I50.32 Chronic diastolic (congestive) heart failure; I13.0 Hypertensive heart and chronic kidney disease with heart failure and stage 1 through stage 4 chronic kidney disease, or unspecified chronic kidney disease; E78.5 Hyperlipidemia, unspecified; E03.9 Hypothyroidism, unspecified; F03.90 Unspecified dementia, unspecified severity, without behavioral disturbance, psychotic disturbance, mood disturbance, and anxiety; N18.30 Chronic kidney disease, stage 3 unspecified; I25.10 Atherosclerotic heart disease of native coronary artery without angina pectoris; Z96.659 Presence of unspecified artificial knee joint; N13.9 Obstructive and reflux uropathy, unspecified; Z79.899 Other long term (current) drug therapy; Z79.82 Long term (current) use of aspirin; Z90.49 Acquired absence of other specified parts of digestive tract; Z95.5 Presence of coronary angioplasty implant and graft
CPT/HCPCS: 36415; 80048; 85025; J2543; J3490